=== PATIENT | male | born 1950 | race Caucasian/White ===

== ENCOUNTER 2016-12-14 19:37 | Emergency (ER) | payer MEDICARE ==
[~2016-12-14] VITALS: Ht 182.9 cm; Wt 82.0 kg
[2016-12-14] MEDS ORDERED: METR0.7512 (19:54)
[2016-12-14] MEDS ORDERED: VITA100036 PO (19:54)
[2016-12-14] MEDS ORDERED: XARE20TA PO (19:54)
[2016-12-14] MEDS ORDERED: TARC150T PO (19:54)
[2016-12-14] MEDS ORDERED: MULTTAB4 (19:54)
[2016-12-14] MEDS ORDERED: FOLI400T PO (19:54)
[2016-12-14] MEDS ORDERED: FLUO0.05 TOPICAL (19:54)
[2016-12-14] MEDS ORDERED: VITA250T3 PO (19:54)
[2016-12-14] MEDS ORDERED: VITA100T65 PO (19:54)
[2016-12-14] MEDS ORDERED: CEPH-460 PO (21:00)
[2016-12-14] MEDS ORDERED: CEPHALEXIN MONOHYDRATE 500 MG CAP PO ONE (21:00)
[2016-12-14] MEDS ORDERED: PRED20 PO (21:00)
[2016-12-14] MEDS ORDERED: predniSONE 20 MG TAB PO ONE (21:00)
--- NOTE | 2016-12-14 21:04 | PD ---
HPI Chief Complaint: Skin Problem Time Seen by Provider: 21:00 Travel History International Travel<30 days: No Contact w/Intl Traveler<30days: No Traveled to known affect area: No History of Present Illness HPI 66-year-old white male presents to emergency Department with complaints of a rash associated with his Tarceva medication. He was told by his oncologist Dr. Coker that when he started his medication that he would most likely have a rash. He started his medication approximately one week ago. The patient has a history of metastatic lung cancer. He states that the area is now involving his scalp, face, trunk and extremities. The areas are small pimple-like structures every tender and swollen. He denies any fever or chills. No drainage. No pruritus. No swelling or throat or difficulty swallowing. PFSH Past Medical History Narrative Medical Metastatic lung cancer, DVT, right neck DVT Cancer: Yes (LUNG CA) Tetanus Vaccination: Unknown Influenza Vaccination: No Past Surgical History Surgical History: No Previous Surgery Social History Alcohol Use: No Tobacco Use: No Substance Use: No Allergies-Medications (Allergen,Severity, Reaction): Coded Allergies: No Known Allergies (Unverified , 12/14/16) Reported Meds & Prescriptions Reported Meds & Active Scripts Active Keflex (Cephalexin) 500 Mg Cap 500 Mg PO Q6H Prednisone 20 Mg Tab 20 Mg PO BID Reported Multi Vitamin Mens (Multiple Vitamin) 1 Tab Tab Folic Acid 0.4 Mg Tab 400 Mcg PO DAILY Vitamin E 100 Unit Tab 100 Units PO DAILY Vitamin D3 (Cholecalciferol) 1,000 Unit Cap 1,000 Units PO DAILY Vitamin C (Ascorbic Acid) 250 Mg Tab 250 Mg PO Xarelto (Rivaroxaban) 20 Mg Tab 20 Mg PO DAILY Fluocinonide Topical (Fluocinonide) 0.05% Cream 1 Applic TOPICAL BID Apply thin layer to affected area(s) Tarceva (Erlotinib) 150 Mg Tab 150 Mg PO DAILY Metronidazole Vaginal Gel 0.75 % Gel 1 Appl .XX BID Review of Systems Except as stated in HPI: all other systems reviewed are Neg Physical Exam Narrative GENERAL: Well-developed, well-nourished in no apparent distress. Nontoxic appearing. HEAD: Normocephalic, atraumatic. EYES: Pupils equal round and reactive. Extraocular motions intact. No scleral icterus. No injection or drainage. ENT: Nose clear. Throat without erythema, tonsillar hypertrophy or exudate. Uvula midline. Airway patent. NECK: Trachea midline. Supple, nontender, moves head freely. No central bony tenderness or spasm. CARDIOVASCULAR: Regular rate and rhythm without murmurs, gallops, or rubs. RESPIRATORY: Clear to auscultation. Breath sounds equal bilaterally. No wheezes , rales, or rhonchi. GASTROINTESTINAL: Abdomen soft, non-tender, nondistended. No hepato-splenomegaly , or palpable masses. No guarding. EXTREMITIES: No clubbing, cyanosis, or edema. No joint tenderness. BACK: Nontender without deformity. No flank tenderness. NEUROLOGICAL: Awake, alert and oriented x 3 .Cranial nerves grossly intact. Motor and sensory grossly within normal limits. Normal speech. Skin: Patient has multiple follicular pustular lesions throughout the scalp, face, trunk and extremities. There is no areas of fluctuance or pointing. There is no cellulitic areas. Data Data Orders Orders Cephalexin (Keflex) (12/14/16 21:00) Prednisone (Deltasone) (12/14/16 21:00) MDM Medical Decision Making Medical Screen Exam Complete: Yes Emergency Medical Condition: Yes Medical Record Reviewed: Yes Differential Diagnosis MDM: High Differential diagnoses: Abscess, folliculitis, cellulitis, lymphangitis, abrasion, contact dermatitis, medication reaction Narrative Course Patient has been initiated a new oral chemotherapy agent for his lung cancer. Patient states that one week ago he started Tarceva since then he has developed a rash. It is follicular in nature. The patient will be given prednisone and Keflex. He is instructed to call his doctor in the morning. This is medication reaction, folliculitis Diagnosis Primary Impression: Medication reaction Qualified Codes: T88.7XXA - Unspecified adverse effect of drug or medicament, initial encounter Additional Impression: Folliculitis Patient Instructions: General Instructions Additional Instructions: Rest. Elevation. keep clean and dry. Warm compresses. Three Advil every 6 hours. Prednisone and Keflex. Follow-up with your oncologist in the next 1-2 days. Return to the ER for any problems. Med/Other Pt SpecificInfo: Prescription(s) given Scripts Cephalexin (Keflex) 500 Mg Cap 500 MG PO Q6H for Infection, #28 CAP 0 Refills Prov: Shai Harrison MD 12/14/16 Prednisone (Prednisone) 20 Mg Tab 20 MG PO BID, #14 TAB 0 Refills Prov: Shai Harrison MD 12/14/16 Ta Mondragon Dec 14, 2016 21:04
== END 2016-12-14 21:25 | disposition home or self-care (01) ==
LOC: EDTENT 19:37
DX: T88.7XXA Unspecified adverse effect of drug or medicament, initial encounter (principal); L73.9 Follicular disorder, unspecified; T45.1X5A Adverse effect of antineoplastic and immunosuppressive drugs, initial encounter; C34.90 Malignant neoplasm of unspecified part of unspecified bronchus or lung; C79.9 Secondary malignant neoplasm of unspecified site
CPT/HCPCS: 99284; J7512